=== PATIENT | male | born 1945 | race Caucasian/White ===

== ENCOUNTER 2017-10-05 18:19 | Inpatient (IN) | payer MEDICARE ==
[~2017-10-05] VITALS: Ht 182.9 cm; Wt 86.2 kg
[~2017-10-05 18:19] MED LIST: AMIT25TA PO; AMIT50TA PO; APIX5TAB PO; ARIP20TA5 PO; FAMO20TA7 PO; MELO7.5T31 PO; METR500T PO; PROP10TA PO; SERT25TA3 PO; TAMS0.4C2 PO; TOPI25CA5 PO; ZOLP10TA5 PO
[2017-10-05 18:51] LABS: BASOPHILS % (AUTO) 0 % (0-1); EOSINOPHILS # (AUTO) 0.14 x10^3/uL (0-0.4); EOSINOPHILS % (AUTO) 1 % (1-7); LYMPHOCYTES # (AUTO) 1.08 x10^3/uL (1-3.4); LYMPHOCYTES % (AUTO) 8 % (22-44); MD NO; MEAN CORPUSCULAR HEMOGLOBIN 32.2 pg (27.5-34.5); MEAN CORPUSCULAR VOLUME 94.8 fL (81-97); MEAN PLATELET VOLUME 7.8 fL (7.4-10.4); MONOCYTES % (AUTO) 8 % (2-9); NEUTROPHILS # (AUTO) 11.57 x10^3/uL (1.8-6.8); NEUTROPHILS % (AUTO) 83 % (42-75); PLATELET COUNT 218 x10^3/uL (130-400); RED CELL DISTRIBUTION WIDTH 14.3 % (9.4-14.8)
[2017-10-05] MEDS ORDERED: SODIUM CHLORIDE 0.9% 1,000ML IVBOLUS ONE (19:00)
[2017-10-05] MEDS ORDERED: SODIUM CHLORIDE FLUSH 10ML SYR IVF ONE (19:00)
[2017-10-05 19:02] LABS: ALANINE AMINOTRANSFERASE 43 U/L (12-78); ALBUMIN 3.7 g/dL (3.4-5.0); ANION GAP 7 mmol/L (5-15); CALCIUM 10.3 mg/dL (8.5-10.1); CHLORIDE 107 mmol/L (98-107)
[2017-10-05 19:04] LABS: ALKALINE PHOSPHATASE 137 U/L (45-117); BILIRUBIN,TOTAL 1.4 mg/dL (0.2-1.0)
[2017-10-05] MEDS ORDERED: OMNIPAQUE 350 MG/ML, 100ML BOTTLE ONE (20:00)
[2017-10-05 20:51] LABS: MICROSCOPIC AUTO
[2017-10-05 20:52] LABS: CULTURE INDICATED? NO
[2017-10-05 22:43] LABS: CLOSTRIDIUM DIFFICILE ANTIGEN POSITIVE; CLOSTRIDIUM DIFFICILE TOXIN POSITIVE (Negative)
[2017-10-05 23:30] VITALS: BP 123/72
[2017-10-05] MEDS ORDERED: ONDANSETRON ODT 4 MG PO PRN (23:30)
[2017-10-05] MEDS ORDERED: SERTRALINE 50MG TABLET PO SCH (23:30)
[2017-10-05] MEDS ORDERED: hydrALAzine 20 MG/ML, 1ML IVPush PRN (23:30)
[2017-10-05] MEDS ORDERED: TEMAZEPAM 15 MG CAPSULE PO PRN (23:30)
[2017-10-06] MEDS: VANCOMYCIN 50 MG/ML ORAL SUSP PO SCH ×5 (00:20→23:27)
[2017-10-06] MEDS: LACTOBACILLUS 1GM/ PACKET PO SCH ×5 (00:20→21:24)
[2017-10-06] MEDS: METRONIDAZOLE PMX 500MG/100ML 100 ML IV SCH ×2 (00:20→06:08)
[2017-10-06 01:50] VITALS: BP 102/66
[2017-10-06 07:40] VITALS: BP 109/67
[2017-10-06] MEDS ORDERED: metroNIDAZOLE 500 MG TABLET PO SCH (09:30)
[2017-10-06] MEDS: SERTRALINE 50MG TABLET PO SCH (09:48)
[2017-10-06] MEDS: ARIPIPRAZOLE 10 MG TABLET PO SCH (09:48)
[2017-10-06] MEDS: TAMSULOSIN 0.4 MG CAP.ER.24H PO SCH (09:48)
[2017-10-06] MEDS: APIXABAN 2.5 MG TABLET PO SCH ×2 (09:48→21:24)
[2017-10-06 14:52] VITALS: BP 113/67
[2017-10-06 19:32] VITALS: BP 131/75
[2017-10-07 03:29] VITALS: BP 109/67
[2017-10-07 05:04] LABS: BASOPHILS # (AUTO) 0.03 x10^3/uL (0-0.1); BASOPHILS % (AUTO) 0 % (0-1); EOSINOPHILS # (AUTO) 0.48 x10^3/uL (0-0.4); EOSINOPHILS % (AUTO) 5 % (1-7); LYMPHOCYTES # (AUTO) 1.27 x10^3/uL (1-3.4); LYMPHOCYTES % (AUTO) 12 % (22-44); MD NO; MEAN CORPUSCULAR HEMOGLOBIN 32.2 pg (27.5-34.5); MEAN CORPUSCULAR HGB CONC 34.1 g/dL (33.2-36.2); MEAN CORPUSCULAR VOLUME 94.2 fL (81-97); MONOCYTES % (AUTO) 13 % (2-9); NEUTROPHILS # (AUTO) 7.34 x10^3/uL (1.8-6.8); NEUTROPHILS % (AUTO) 71 % (42-75); PLATELET COUNT 177 x10^3/uL (130-400); RED BLOOD COUNT 4.43 x10^6/uL (4.38-5.82)
[2017-10-07 05:06] LABS: ALANINE AMINOTRANSFERASE 31 U/L (12-78); ALBUMIN 2.9 g/dL (3.4-5.0); ANION GAP 7 mmol/L (5-15); CHLORIDE 111 mmol/L (98-107)
[2017-10-07 05:15] LABS: ALKALINE PHOSPHATASE 114 U/L (45-117); BILIRUBIN, DIRECT 0.3 mg/dL (0.1-0.2); BILIRUBIN,INDIRECT 0.8 mg/dL (0.0-2.0); BILIRUBIN,TOTAL 1.1 mg/dL (0.2-1.0); CREATININE 1.03 mg/dL (0.7-1.3); TOTAL PROTEIN 6.5 g/dL (6.4-8.2)
[2017-10-07] MEDS: VANCOMYCIN 50 MG/ML ORAL SUSP PO SCH ×4 (05:35→23:21)
[2017-10-07] MEDS: LACTOBACILLUS 1GM/ PACKET PO SCH ×4 (05:35→21:11)
[2017-10-07 07:20] VITALS: BP 107/68
[2017-10-07] MEDS: APIXABAN 2.5 MG TABLET PO SCH ×2 (09:10→21:11)
[2017-10-07] MEDS: SERTRALINE 50MG TABLET PO SCH (09:11)
[2017-10-07] MEDS: ARIPIPRAZOLE 10 MG TABLET PO SCH (09:11)
[2017-10-07] MEDS: TAMSULOSIN 0.4 MG CAP.ER.24H PO SCH (09:11)
[2017-10-07 16:10] VITALS: BP 115/71
[2017-10-07 18:50] VITALS: BP 114/68
[2017-10-08 02:06] VITALS: BP 108/68
[2017-10-08 05:00] LABS: BASOPHILS # (AUTO) 0.02 x10^3/uL (0-0.1); BASOPHILS % (AUTO) 0 % (0-1); EOSINOPHILS % (AUTO) 7 % (1-7); LYMPHOCYTES # (AUTO) 2.07 x10^3/uL (1-3.4); LYMPHOCYTES % (AUTO) 25 % (22-44); MD NO; MEAN CORPUSCULAR HEMOGLOBIN 32.4 pg (27.5-34.5); MEAN CORPUSCULAR HGB CONC 33.8 g/dL (33.2-36.2); MEAN CORPUSCULAR VOLUME 95.8 fL (81-97); MEAN PLATELET VOLUME 8.2 fL (7.4-10.4); MONOCYTES # (AUTO) 1.01 x10^3/uL (0.2-0.8); MONOCYTES % (AUTO) 12 % (2-9); NEUTROPHILS # (AUTO) 4.66 x10^3/uL (1.8-6.8); NEUTROPHILS % (AUTO) 56 % (42-75); PLATELET COUNT 197 x10^3/uL (130-400)
[2017-10-08 05:19] LABS: ANION GAP 6 mmol/L (5-15); CALCIUM 10.1 mg/dL (8.5-10.1); CHLORIDE 112 mmol/L (98-107); CREATININE 1.05 mg/dL (0.7-1.3)
[2017-10-08] MEDS: VANCOMYCIN 50 MG/ML ORAL SUSP PO SCH ×3 (05:47→17:43)
[2017-10-08] MEDS: LACTOBACILLUS 1GM/ PACKET PO SCH ×2 (06:41→11:10)
[2017-10-08 07:29] VITALS: BP 113/69
[2017-10-08] MEDS: APIXABAN 2.5 MG TABLET PO SCH ×2 (08:12→20:35)
[2017-10-08] MEDS: SERTRALINE 50MG TABLET PO SCH (08:12)
[2017-10-08] MEDS: TAMSULOSIN 0.4 MG CAP.ER.24H PO SCH (08:13)
[2017-10-08] MEDS: ARIPIPRAZOLE 10 MG TABLET PO SCH (08:13)
[2017-10-08 12:52] VITALS: BP 112/65
[2017-10-08] MEDS: LACTOBACILLUS CHEW TABLET PO SCH ×2 (16:52→20:35)
[2017-10-08 18:42] VITALS: BP 98/58
[2017-10-09] MEDS: VANCOMYCIN 50 MG/ML ORAL SUSP PO SCH ×3 (00:01→11:32)
[2017-10-09 01:25] VITALS: BP 105/66
[2017-10-09 05:57] LABS: BASOPHILS # (AUTO) 0.01 x10^3/uL (0-0.1); BASOPHILS % (AUTO) 0 % (0-1); EOSINOPHILS # (AUTO) 0.44 x10^3/uL (0-0.4); EOSINOPHILS % (AUTO) 7 % (1-7); LYMPHOCYTES # (AUTO) 1.91 x10^3/uL (1-3.4); LYMPHOCYTES % (AUTO) 30 % (22-44); MD NO; MEAN CORPUSCULAR HEMOGLOBIN 32.2 pg (27.5-34.5); MEAN CORPUSCULAR HGB CONC 33.8 g/dL (33.2-36.2); MEAN CORPUSCULAR VOLUME 95.2 fL (81-97); MEAN PLATELET VOLUME 8.3 fL (7.4-10.4); MONOCYTES # (AUTO) 0.78 x10^3/uL (0.2-0.8); MONOCYTES % (AUTO) 12 % (2-9); NEUTROPHILS # (AUTO) 3.28 x10^3/uL (1.8-6.8); NEUTROPHILS % (AUTO) 51 % (42-75); PLATELET COUNT 196 x10^3/uL (130-400); RED BLOOD COUNT 4.43 x10^6/uL (4.38-5.82); RED CELL DISTRIBUTION WIDTH 14.9 % (9.4-14.8)
[2017-10-09 06:11] LABS: CHLORIDE 108 mmol/L (98-107)
[2017-10-09] MEDS: LACTOBACILLUS CHEW TABLET PO SCH ×2 (06:14→11:32)
[2017-10-09 06:17] LABS: ALANINE AMINOTRANSFERASE 33 U/L (12-78); ALBUMIN 2.9 g/dL (3.4-5.0); ALKALINE PHOSPHATASE 120 U/L (45-117); ANION GAP 7 mmol/L (5-15); BILIRUBIN,TOTAL 0.5 mg/dL (0.2-1.0); CALCIUM 10.3 mg/dL (8.5-10.1); TOTAL PROTEIN 6.4 g/dL (6.4-8.2)
[2017-10-09] MEDS: TAMSULOSIN 0.4 MG CAP.ER.24H PO SCH (09:20)
[2017-10-09] MEDS: SERTRALINE 50MG TABLET PO SCH (09:20)
[2017-10-09] MEDS: ARIPIPRAZOLE 10 MG TABLET PO SCH (09:20)
[2017-10-09] MEDS: APIXABAN 2.5 MG TABLET PO SCH (09:21)
[2017-10-09 09:25] VITALS: BP 102/62
[2017-10-09 14:56] VITALS: BP 108/69
[2017-10-09] MEDS ORDERED: VANC1VIA3 PO (15:07)
== END 2017-10-09 16:09 | disposition home or self-care (01) | DRG 871 ==
LOC: ED 21:46 → EDIP 22:26 → 4WST 23:27
PROVIDERS: ADMIT Hospitalist; ATTEND Hospitalist
DX: A41.9 Sepsis, unspecified organism (principal); G93.41 Metabolic encephalopathy; A04.72 Enterocolitis due to Clostridium difficile, not specified as recurrent; D68.69 Other thrombophilia; F33.1 Major depressive disorder, recurrent, moderate; E86.0 Dehydration; I10 Essential (primary) hypertension; N40.0 Benign prostatic hyperplasia without lower urinary tract symptoms; Z86.711 Personal history of pulmonary embolism; Z90.49 Acquired absence of other specified parts of digestive tract; K52.89 Other specified noninfective gastroenteritis and colitis; R73.9 Hyperglycemia, unspecified
CPT/HCPCS: 36415; 70450; 74177; 80048; 80053; 81001; 82247; 82248; 83605; 85025; 87324; 89055; 93005; 96360; 96361; J3370; Q9967; J7030

== ENCOUNTER → 2018-01-02 | Outpatient (CLI) | payer MEDICARE ==
[~2018-01-02] MED LIST changes: +OMNIPAQUE 350 MG/ML, 100ML BOTTLE ONE; +VANC1VIA3 PO
[2018-01-02 11:08] LABS: CREATININE 1.32 mg/dL (0.7-1.3)
== END | disposition home or self-care (01) ==
LOC: RAD 10:29
PROVIDERS: ATTEND Internal Medicine
DX: N28.1 Cyst of kidney, acquired (principal); N28.89 Other specified disorders of kidney and ureter
CPT/HCPCS: 36415; 74170; 82565; Q9967

== ENCOUNTER 2018-02-12 05:42 | Day surgery (SDC) | payer MEDICARE ==
[~2018-02-12] VITALS: Ht 182.9 cm; Wt 84.6 kg
[~2018-02-12 05:42] MED LIST changes: -OMNIPAQUE 350 MG/ML, 100ML BOTTLE ONE
[2018-02-12] MEDS ORDERED: SODIUM CHLORIDE 0.9% 1,000 ML IV SCH (06:43)
[2018-02-12] MEDS ORDERED: CARB1TAB22 PO (06:54)
[2018-02-12] MEDS ORDERED: ARIP20TA5 PO (06:54)
[2018-02-12] MEDS ORDERED: APIX5TAB PO (06:54)
[2018-02-12] MEDS ORDERED: TOPI25TA8 PO ×2 (06:54)
[2018-02-12] MEDS ORDERED: TAMS0.4C2 PO (06:54)
[2018-02-12] MEDS ORDERED: CHOL100011 PO (06:54)
[2018-02-12] MEDS ORDERED: CYAN10005 PO (06:54)
[2018-02-12] MEDS ORDERED: SERT100T5 PO (06:54)
[2018-02-12 06:56] VITALS: BP 110/69
[2018-02-12] MEDS ORDERED: LIDOCAINE-MPF 2%, 2ML ONE (08:09)
[2018-02-12] MEDS ORDERED: MIDAZOLAM 1 MG/ML, 5ML ONE (08:15)
[2018-02-12] MEDS ORDERED: FENTANYL PF 100 MCG/2ML ONE (08:15)
[2018-02-12] MEDS ORDERED: FLUMAZENIL 0.1 MG/1 ML, 5ML ONE (08:15)
[2018-02-12] MEDS ORDERED: NALOXONE 1 MG/ML, 2ML ONE (08:15)
== END 2018-02-12 10:15 | disposition home or self-care (01) ==
LOC: OUT 05:42
PROVIDERS: ATTEND Internal Medicine
DX: R19.09 Other intra-abdominal and pelvic swelling, mass and lump (principal); F32.9 Major depressive disorder, single episode, unspecified; F41.9 Anxiety disorder, unspecified; G20 Parkinson's disease; K21.9 Gastro-esophageal reflux disease without esophagitis; G43.909 Migraine, unspecified, not intractable, without status migrainosus; Z85.53 Personal history of malignant neoplasm of renal pelvis; Z98.890 Other specified postprocedural states; Z79.899 Other long term (current) drug therapy; Z86.711 Personal history of pulmonary embolism; Z85.828 Personal history of other malignant neoplasm of skin
CPT/HCPCS: 49180; 77012; 88305; J2250; J3010; J3490; J7030; J2310